=== PATIENT | male | born 1990 | race Asian ===

== ENCOUNTER 2018-02-22 16:19 | Emergency (ER) | payer BC, OTHER ==
[2018-02-22] MEDS: LIDOCAINE W/EPINEPHRINE 1% 20ML VIAL SC (17:06)
== END 2018-02-22 17:34 | disposition home or self-care (01) ==
LOC: M ED 16:19
DX: S51.811A Laceration without foreign body of right forearm, initial encounter (principal); W22.8XXA Striking against or struck by other objects, initial encounter; Y92.018 Other place in single-family (private) house as the place of occurrence of the external cause; Z79.899 Other long term (current) drug therapy; Z88.8 Allergy status to other drugs, medicaments and biological substances
CPT/HCPCS: 73090

== ENCOUNTER 2019-11-17 17:12 | Inpatient (IN) | payer BC ==
[~2019-11-17] VITALS: Ht 167.6 cm; Wt 82.6 kg
[~2019-11-17 17:12] MED LIST: BUPR300T92
[2019-11-17] MEDS ORDERED: CHARCOAL ACTIVATED LIQUID 25 GM/120 ML BTL PO ONE (17:30)
[2019-11-17] MEDS ORDERED: NS 1,000 ML IV ONE (17:30)
[2019-11-17 17:44] LABS: BASO % 0.4 % (0.0-1.0); EOS # 0.1 10^3/uL (0.0-0.5); EOS % 0.7 % (0.0-3.0); HEMATOCRIT 44.8 % (42.0-52.0); HEMOGLOBIN 14.7 g/dl (13.5-17.5); LYMPH # 2.1 10^3/uL (1.5-5.0); LYMPH % 20.9 % (24.0-44.0); MEAN CORPUSCULAR HEMOGLOBIN 28.1 pg (27.0-33.0); MEAN CORPUSCULAR HGB CONC 32.8 g/dl (32.0-36.5); MEAN CORPUSCULAR VOLUME 85.5 fl (80.0-96.0); MONO # 0.8 10^3/uL (0.0-0.8); MONO % 7.4 % (0.0-5.0); NEUTROPHILS # 7.2 10^3/uL (1.5-8.5); NEUTROPHILS % 70.3 % (36.0-66.0); PLATELET COUNT, AUTOMATED 363 10^3/uL (150-450); RED BLOOD COUNT 5.24 10^6/uL (4.30-6.10); WHITE BLOOD COUNT 10.2 10^3/uL (4.0-10.0)
[2019-11-17] MEDS ORDERED: LORazepam 2 MG/ML VIAL IV STA ×4 (17:53→19:36)
[2019-11-17] MEDS ORDERED: LORazepam 2 MG/ML VIAL As Ordered ONE ×3 (17:56→19:47)
[2019-11-17] MEDS ORDERED: NS 1,000 ML IV SCH (18:15)
[2019-11-17] MEDS ORDERED: ONDANSETRON 4MG/2ML VIAL IV ONE (18:15)
[2019-11-17 18:23] LABS: ACETAMINOPHEN LEVEL < 2.0 UG/ML (10.0-30.0); ALT/SGPT 37 U/L (12-78); BILIRUBIN,DIRECT 0.2 MG/DL (0.0-0.2); BILIRUBIN,TOTAL 0.5 MG/DL (0.2-1.0); BLOOD UREA NITROGEN 12 MG/DL (7-18); CALCIUM LEVEL 9.5 MG/DL (8.5-10.1); CARBON DIOXIDE LEVEL 21 MEQ/L (21-32); CHLORIDE LEVEL 109 MEQ/L (98-107); CPK CREATINE PHOSPHOKINASE 100 U/L (39-308); ETHYL ALCOHOL (ETHANOL) < 0.003 % (0.000-0.010); GLOMERULAR FILTRATION RATE > 60.0 (>60); GLUCOSE, FASTING 111 MG/DL (70-100); POTASSIUM SERUM 3.1 MEQ/L (3.5-5.1); SALICYLATE LEVEL < 1.7 MG/DL (5.0-30.0); SODIUM LEVEL 139 MEQ/L (136-145); TOTAL PROTEIN 7.7 GM/DL (6.4-8.2)
[2019-11-17 18:40] LABS: AMPHETAMINES LEVEL URINE POSITIVE (NEGATIVE); BARBITURATES URINE NEGATIVE (NEGATIVE); BENZODIAZEPINES URINE NEGATIVE (NEGATIVE); CANNABINOIDS URINE NEGATIVE (NEGATIVE); COCAINE METABOLITE URINE NEGATIVE (NEGATIVE); METHADONE URINE NEGATIVE (NEGATIVE); OPIATES URINE NEGATIVE (NEGATIVE); PHENCYCLIDINE URINE NEGATIVE (NEGATIVE)
[2019-11-17] MEDS ORDERED: KCL 10MEQ/100ML SWI (KRUN) 10 MEQ in IV 1 EA IV ONE (18:45)
[2019-11-17] MEDS ORDERED: PANT-23 PO (19:09)
[2019-11-17] MEDS ORDERED: SUMA100T2 PO (19:09)
[2019-11-17] MEDS ORDERED: FAMO20TA PO (19:09)
[2019-11-17] MEDS ORDERED: VITAD1000T PO (19:09)
[2019-11-17] MEDS ORDERED: TOPI100T9 PO (19:09)
[2019-11-17] MEDS ORDERED: BUPR1TAB53 PO (19:09)
[2019-11-17] MEDS ORDERED: PATIENT COMMENTS (19:11)
[2019-11-17] MEDS ORDERED: CETACAINE SPRAY 5GM ONE (19:20)
[2019-11-17] MEDS ORDERED: LORazepam 2 MG/ML VIAL IV PRN ×2 (19:30→19:45)
--- NOTE | 2019-11-17 19:34 | HPEPDOC ---
[facility] Medical History & Physical Date of Admission Nov 17, 2019 Date of Service: Nov 17, 2019 History and Physical CHIEF COMPLAINT: Drug overdose HISTORY OF PRESENT ILLNESS: Patient is 29-year-old male brought in by EMS after ingesting 2 bottles of 150MG TABLET Wellbutrin and 1 bottle of Protonix, triaged at 17:14 this evening. Patient reportedly had a seizure in the ER and was given Ativan. Poison control was contacted in the ER and had recommended activated charcoal to be given, which patient had got. Patient is alert but does not answer questions or follow commands, intermittent episodes of agitation. 2nd notification of seizure was reported but upon evaluation, it seems like agitation and not actually a seiz ure. Unable to obtain any history from patient, all from triage note and through phone with . Per , patient has been very depressed since he lost his mother last March and continues to get worse. No other significant medical history apart from psychiatric reportedly. PMH: PTSD and Depression PAST SURGICAL HISTORY: None SOCIAL HISTORY: 1-2 cigs/day. No alcohol or drug. FAMILY HISTORY: Both parents with DM and HTN ALLERGIES: Please see below. ROS: Unable to obtain HOME MEDICATIONS: Please see below. PHYSICAL EXAMINATION: General: Alert but does not follow commands. Moan and groans with periods of agitation. Body covered in activated charcoal. Eyes: Normal sclera, EOMI HENT: Atraumatic Cardiovascular: Tachycardic, regular rhythm. Pulmonary: Clear to auscultation b/l, no wheezing GI: Soft, nontender, nondistended Skin: Warm and dry Neuro: CN grossly intact. Unable to fully assess due to mental status. LABORATORY DATA: See below. IMAGING: None MICROBIOLOGY: Please see below. ASSESSMENT AND PLAN: 1. Drug overdose - 2 bottles of wellbutrin and 1 bottle of protonix this afternoon. - s/p activated charcoal recommended by Poison control ([place]). - Also recommended observation for 24 hours, benzos for seizures and 2g magnesium if Qtc >500. - sinus tachycardia on EKG with Qtc 498. Repeat EKG, obtain mag level and check Calcium level now. - Admit to ICU with 1:1 observation. Will need psych eval after medically cleared, likely will need to be admitted to inpatient psych. - IVF support. NPO for now. Ativan PRN for seizures, seizure precautions. 2. PTSD and Depression - to be evaluated and treat per Psych recommendation post discharge from medical floor. DVT ppx: Lovenox Code status: Full code Vital Signs Vital Signs Date Time Temp Pulse Resp B/P (MAP) Pulse Ox O2 Delivery O2 Flow Rate FiO2 11/17/19 17:55 Room Air 11/17/19 17:55 11/17/19 17:13 98.3 123 18 97 Laboratory Data Labs 24H Laboratory Tests 2 11/17/19 17:34: Immature Granulocyte % (Auto) 0.3, Neutrophils (%) (Auto) 70.3H, Lymphocytes (%) (Auto) 20.9L, Monocytes (%) (Auto) 7.4H, Eosinophils (%) (Auto) 0.7, Basophils (%) (Auto) 0.4, Neutrophils # (Auto) 7.2, Lymphocytes # (Auto) 2.1, Monocytes # (Auto) 0.8, Eosinophils # (Auto) 0.1, Basophils # (Auto) 0.0, Nucleated Red Blood Cells % (auto) 0.0, Anion Gap 9, Glomerular Filtration Rate > 60.0, Calciu m Level 9.5, Total Bilirubin 0.5, Direct Bilirubin 0.2, Aspartate Amino Transf (AST/SGOT) 19, Alanine Aminotransferase (ALT/SGPT) 37, Alkaline Phosphatase 100, Total Creatine Kinase 100, Total Protein 7.7, Albumin 4.0, Albumin/Globulin Ratio 1.1, Thyroid Stimulating Hormone (TSH) 2.330, Salicylates Level < 1.7L, Acetaminophen Level < 2.0L, Ethyl Alcohol Level < 0.003 11/17/19 17:40: Bedside Glucose (Misc Panel) 125H 11/17/19 18:08: Urine Opiates Screen NEGATIVE, Urine Methadone Screen NEGATIVE, Urine Barbiturates Screen NEGATIVE, Urine Phencyclidine Screen NEGATIVE, Urine Amphetamines Screen POSITIVEH, Urine Benzodiazepines Screen NEGATIVE, Urine Coca ine Metabolite Screen NEGATIVE, Urine Cannabinoids Screen NEGATIVE CBC/BMP Laboratory Tests 11/17/19 17:34 Home Medications Scheduled Bupropion HCl (Bupropion HCl Sr) 150 Mg Tab.sr.12h, 150 MG PO DAILY Cholecalciferol (Vitamin D3) (Vitamin D3) 1,000 Unit Tablet, 2,000 UNITS PO DAILY Famotidine (Famotidine) 20 Mg Tablet, 20 MG PO QHS Pantoprazole Sodium (Pantoprazole Sodium) 40 Mg Tablet.dr, 40 MG PO DAILY Topiramate (Topiramate) 100 Mg Tablet, 100 MG PO DAILY Scheduled PRN Sumatriptan Succinate (Sumatriptan Succinate) 100 Mg Tablet, 100 MG PO ASDIRECTED PRN for MIGRAINE may repeat in 2 hours; do not exceed 200 mg in 24 hours Miscellaneous Medications [Patient Comments] UNABLE TO SPEAK WITH PATIENT AT THIS TIME. MEDICATIONS VERIFIED WITH [facility]. Allergies Coded Allergies: divalproex sodium (Verified Adverse Reaction, Mild, HAND SHAKING, 11/17/19) A-FIB/CHADSVASC A-FIB History Current/History of A-Fib/PAF?: No CONCETTA TRAN MD Nov 17, 2019 19:34
[2019-11-17 21:00] VITALS: BP 125/77
[2019-11-17] MEDS: NS 1,000 ML IV SCH (21:20)
[2019-11-17] MEDS: KCL 10MEQ/100ML SWI (KRUN) 10 MEQ in IV 1 EA IV SCH ×3 (21:25→23:07)
[2019-11-17] MEDS: ENOXAPARIN 40MG/0.4ML SYRINGE (J1650 PER 10MG) SC SCH (21:25)
[2019-11-17] MEDS ORDERED: PROPOFOL 1,000 MG/100 ML VIAL As Ordered ONE (21:29)
[2019-11-17 22:00] VITALS: BP 119/71
[2019-11-17] MEDS ORDERED: MIDAZOLAM 5MG/ML 1ML VIAL (J2250 PER 1MG) As Ordered ONE (22:00)
[2019-11-17 22:08] LABS: ALBUMIN 3.5 GM/DL (3.2-5.2); ALT/SGPT 31 U/L (12-78); BILIRUBIN,TOTAL 0.6 MG/DL (0.2-1.0); BLOOD UREA NITROGEN 13 MG/DL (7-18); CALCIUM LEVEL 8.4 MG/DL (8.5-10.1); CARBON DIOXIDE LEVEL 21 MEQ/L (21-32); CHLORIDE LEVEL 112 MEQ/L (98-107); CREATININE FOR GFR 1.42 MG/DL (0.70-1.30); GLOMERULAR FILTRATION RATE > 60.0 (>60); GLUCOSE, FASTING 125 MG/DL (70-100); MAGNESIUM LEVEL 2.1 MG/DL (1.8-2.4); POTASSIUM SERUM 3.3 MEQ/L (3.5-5.1); SODIUM LEVEL 140 MEQ/L (136-145); TOTAL PROTEIN 6.6 GM/DL (6.4-8.2)
[2019-11-17 22:09] VITALS: BP 123/72
[2019-11-17] MEDS ORDERED: GOLYTELY SOLN 4000 ML BTL PO ONE (22:15)
[2019-11-17 22:30] VITALS: BP 100/65
[2019-11-17] MEDS ORDERED: GOLYTELY SOLN 4000 ML BTL NG ONE (22:30)
[2019-11-17] MEDS ORDERED: MIDAZOLAM INJ 2MG/2ML VIAL (J2250 PER 1MG) IV STA (22:36)
--- NOTE | 2019-11-17 22:45 | REP ---
Clinical: Status post intubation. Comparison: None. Findings: Endotracheal tube 5 cm above the roas. Nasogastric tube courses below left hemidiaphragm. Cardiac silhouette is normal. Lung lopes are clear without consolidation, effusion, or pneumothorax. Skeletal structures are intact. Impression: 1. Endotracheal tube and nasogastric tube in satisfactory position. 2. No acute cardiopulmonary process appreciated. Electronically Signed by Alok Briggs MD 11/17/2019 10:37 P
[2019-11-17] MEDS: propofoL 1,000 MG in IV 1 EA IV SCH (22:52)
[2019-11-17] MEDS: CHLORHEXIDINE GLUCONATE 0.12 % 15ML UDC (PERIDEX ORAL RINSE) MT SCH (22:57)
[2019-11-17 23:00] VITALS: BP 96/51
[2019-11-17 23:00] LABS: ABG BASE EXCESS -5.6 (-2.0-2.0); ABG O2 SATURATION 99.7 % (95.0-99.0); ABG PARTIAL PRESSURE CO2 34.1 mmHg (35.0-45.0); ABG PARTIAL PRESSURE O2 232.7 mmHg (75.0-100.0); ABG STANDARD HCO3 19.9 MEQ/L (22.0-26.0); ABG pH (ARTERIAL) 7.363 UNITS (7.350-7.450)
[2019-11-17] MEDS ORDERED: GLUCOSE 4GM CHEW TABLET PO PRN (23:00)
[2019-11-17] MEDS ORDERED: DEXTROSE 50% 50 ML SYRINGE IV PRN (23:00)
[2019-11-17] MEDS ORDERED: GLUCAGON INJ 1MG VIAL SC PRN (23:00)
[2019-11-17] MEDS: HumaLOG INSULIN (NovoLOG) PER UNIT SC SCH (23:53)
[2019-11-18] VITALS (25 sets, daily range): BP systolic 101–130; BP diastolic 61–82
[2019-11-18] MEDS: propofoL 1,000 MG in IV 1 EA IV SCH ×6 (02:41→21:05)
[2019-11-18] MEDS: NS 1,000 ML IV SCH ×3 (03:21→19:55)
[2019-11-18] MEDS: MIDAZOLAM INJ 2MG/2ML VIAL (J2250 PER 1MG) IV PRN ×8 (03:30→22:45)
[2019-11-18 05:13] LABS: BASO % 0.2 % (0.0-1.0); EOS % 0.1 % (0.0-3.0); HEMATOCRIT 38.3 % (42.0-52.0); LYMPH # 0.9 10^3/uL (1.5-5.0); LYMPH % 8.2 % (24.0-44.0); MEAN CORPUSCULAR HEMOGLOBIN 28.5 pg (27.0-33.0); MEAN CORPUSCULAR HGB CONC 32.1 g/dl (32.0-36.5); MEAN CORPUSCULAR VOLUME 88.9 fl (80.0-96.0); MONO # 0.8 10^3/uL (0.0-0.8); MONO % 6.9 % (0.0-5.0); NEUTROPHILS # 9.5 10^3/uL (1.5-8.5); NEUTROPHILS % 84.1 % (36.0-66.0); RED BLOOD COUNT 4.31 10^6/uL (4.30-6.10); WHITE BLOOD COUNT 11.2 10^3/uL (4.0-10.0)
[2019-11-18 05:18] LABS: HEMOGLOBIN 12.3 g/dl (13.5-17.5); PLATELET COUNT, AUTOMATED 262 10^3/uL (150-450)
[2019-11-18 05:37] LABS: ABG BASE EXCESS -4.5 (-2.0-2.0); ABG O2 SATURATION 99.1 % (95.0-99.0); ABG PARTIAL PRESSURE CO2 34.7 mmHg (35.0-45.0); ABG PARTIAL PRESSURE O2 160.1 mmHg (75.0-100.0); ABG STANDARD HCO3 20.8 MEQ/L (22.0-26.0); ABG pH (ARTERIAL) 7.378 UNITS (7.350-7.450)
[2019-11-18 05:42] LABS: ALBUMIN 3.2 GM/DL (3.2-5.2); ALT/SGPT 30 U/L (12-78); BILIRUBIN,TOTAL 0.4 MG/DL (0.2-1.0); BLOOD UREA NITROGEN 9 MG/DL (7-18); CARBON DIOXIDE LEVEL 22 MEQ/L (21-32); CHLORIDE LEVEL 113 MEQ/L (98-107); CHOLESTEROL LEVEL 83 MG/DL (< 200); CPK CREATINE PHOSPHOKINASE 132 U/L (39-308); CREATININE FOR GFR 1.16 MG/DL (0.70-1.30); GLOMERULAR FILTRATION RATE > 60.0 (>60); GLUCOSE, FASTING 110 MG/DL (70-100); LDH LACTATE DEHYDROGENASE 181 U/L (87-241); PHOSPHORUS LEVEL 2.4 MG/DL (2.5-4.9); POTASSIUM SERUM 3.7 MEQ/L (3.5-5.1); SODIUM LEVEL 143 MEQ/L (136-145); TOTAL PROTEIN 6.1 GM/DL (6.4-8.2); TRIGLYCERIDES LEVEL 202 MG/DL (<150)
[2019-11-18] MEDS: HumaLOG INSULIN (NovoLOG) PER UNIT SC SCH ×3 (05:56→18:00)
[2019-11-18] MEDS: ALBUTEROL SULFATE 2.5 MG/0.5 ML INH NEB SOLN NEB SCH ×4 (07:08→19:32)
--- NOTE | 2019-11-18 08:12 | REP ---
Clinical: Endotracheal tube placement . Comparison: 11/17/2019 endotracheal tube 4 cm above the rosa. Nasogastric tube courses below left hemidiaphragm. . Findings: The mediastinum and cardiac silhouette are stable and within normal limits for portable technique. The lung lopes are clear without acute consolidation, effusion, or pneumothorax. Skeletal structures are intact. Impression: No acute cardiopulmonary process appreciated. Electronically Signed by Alok Briggs MD 11/18/2019 08:01 A
--- NOTE | 2019-11-18 09:03 | ECGEPIP ---
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
[2019-11-18] MEDS: CHLORHEXIDINE GLUCONATE 0.12 % 15ML UDC (PERIDEX ORAL RINSE) MT SCH ×2 (10:08→19:55)
--- NOTE | 2019-11-18 12:48 | CCN ---
DATE: 11/17/2019 I was called to the intensive care unit to evaluate this 29-year-old male who had taken an overdose of medications including Wellbutrin and Protonix and possibly others. Ingestion was earlier this evening. In the emergency department, seizure activity was seen and he was given Ativan. Now in the intensive care unit, he is obtunded with dyskinetic movements of his extremities in response to tactile stimulus. There is no significant past history obtainable nor was there much reported by family. PHYSICAL EXAMINATION: His temperature is 98, pulse rate 146, respirations 24, blood pressure 125/72. HEENT: He is normocephalic, atraumatic. His pupils are small and there is roving eye movement. He does have pupillary response. The oropharynx is stained with charcoal. His reflex is very minimal. Neck is supple. There is no meningismus. No adenopathy. Jugular veins are flat. Carotid upstroke brisk. Heart sounds are regular without appreciable murmurs. Breath sounds are diminished, but clear and mildly coarse in the large airways. Abdomen is soft. There are diminished bowel sounds in the right lower quadrant. No palpable mass. No bruit. Extremities are showing dystonic motion. Pulses are palpable times four. There is no gross deformity. Diagnostic Studies: Sodium is 140, potassium 3.3, chloride 112, CO2 21, BUN 13, creatinine 1.42, glucose 125, AST is 20, ALT is 31, albumin is 3.5. Toxicology was positive for amphetamines. White cell count is 10.2, hemoglobin 14., hematocrit 44, platelet count 363,000. Electrocardiogram shows a sinus tachycardia. The primary problem requiring critical attention is polysubstance overdose. As the patient is not protecting his airway, we place an endotracheal tube and initiate mechanical ventilation. Will begin sedation with propofol. He has received charcoal. An nasogastric (NG) tube will be placed to facilitate lavage. Seizure disorder. There has been no recurrence. Ativan will be available on an as-needed basis and we will take appropriate precautions. Deep vein thrombosis (DVT) prophylaxis has been addressed with Lovenox. Ulcer prophylaxis. The patient apparently took Protonix as part of his overdose, will begin famotidine in the morning. Glycemic control will be monitored with fingerstick blood sugars and will arrange coverage every 6 hours. His condition is critical. Prognosis is guarded. One hour and 12 minutes was spent in the provision of bedside critical care abd coordination, exclusive of any procedure time.
--- NOTE | 2019-11-18 16:21 | IPNPDOC ---
Text Note Date of Service The patient was seen on 11/18/19. NOTE Subjective: -Now intubated per poison control recs for protection given seizures and high dose of wellbutrin overdose. Objective: General: NAD, sedated Eyes: Normal sclera, anicteric HENT: Atraumatic, intubated, dry MM Cardiovascular: RRR, no mrg Pulmonary: +rhonchi, otherwise moving air well GI: Normoactive, soft, non distended Skin: Warm and dry Neuro: Unable to fully assess due to mental status. withdraws to pain LABORATORY DATA: reviewed WBC 11.2 hgb 12.3 platelets 262 na 143 K 3.7 Cr 1.16 MICROBIOLOGY: Please see below. ASSESSMENT AND PLAN: 1. Drug overdose: 2 bottles of wellbutrin and 1 bottle of protonix - s/p activated charcoal, intubated as recommended by Poison control - Also recommended observation benzos for seizures and 2g magnesium if Qtc >500. - Intentivist is functionally the primary team while intubated in the ICU - Will need psych eval after medically cleared, will need to be admitted to inpatient psych. - IVF, NPO 2. PTSD and Depression - to be evaluated and treated per psych after medical optimization DVT ppx: Lovenox Code status: Full code VS,Fishbone, I+O VS, Fishbone, I+O Laboratory Tests 11/17/19 17:34 11/17/19 21:20 11/18/19 05:00 Vital Signs Date Time Temp Pulse Resp B/P (MAP) Pulse Ox O2 Delivery O2 Flow Rate FiO2 11/18/19 15:19 20 21 11/18/19 15:00 93 119/77 (91) 100 Ventilator 11/18/19 12:00 98.8 I&O- Last 24 Hours up to 6 AM 11/18/19 06:00 Intake Total 7457 ml Output Total 795 ml Balance 6662 ml VIKASH SALAS MD Nov 18, 2019 16:21
[2019-11-18] MEDS: ENOXAPARIN 40MG/0.4ML SYRINGE (J1650 PER 10MG) SC SCH (20:01)
--- NOTE | 2019-11-18 20:28 | ECGEPIP ---
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
--- NOTE | 2019-11-18 20:32 | ECGEPIP ---
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
--- NOTE | 2019-11-18 20:34 | ECGEPIP ---
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
[2019-11-19] VITALS (12 sets, daily range): BP systolic 117–134; BP diastolic 65–81
[2019-11-19] MEDS: propofoL 1,000 MG in IV 1 EA IV SCH ×2 (00:06→03:43)
[2019-11-19] MEDS: HumaLOG INSULIN (NovoLOG) PER UNIT SC SCH ×2 (00:35→05:22)
[2019-11-19] MEDS: MIDAZOLAM INJ 2MG/2ML VIAL (J2250 PER 1MG) IV PRN ×3 (00:35→03:42)
[2019-11-19 04:19] LABS: BASO % 0.3 % (0.0-1.0); EOS # 0.1 10^3/uL (0.0-0.5); EOS % 0.8 % (0.0-3.0); HEMATOCRIT 36.7 % (42.0-52.0); HEMOGLOBIN 11.8 g/dl (13.5-17.5); LYMPH # 1.2 10^3/uL (1.5-5.0); LYMPH % 11.3 % (24.0-44.0); MEAN CORPUSCULAR HEMOGLOBIN 28.4 pg (27.0-33.0); MEAN CORPUSCULAR HGB CONC 32.2 g/dl (32.0-36.5); MEAN CORPUSCULAR VOLUME 88.4 fl (80.0-96.0); MONO % 9.3 % (0.0-5.0); PLATELET COUNT, AUTOMATED 264 10^3/uL (150-450); RED BLOOD COUNT 4.15 10^6/uL (4.30-6.10); WHITE BLOOD COUNT 10.3 10^3/uL (4.0-10.0)
[2019-11-19 04:51] LABS: ALBUMIN 2.9 GM/DL (3.2-5.2); ALT/SGPT 24 U/L (12-78); BILIRUBIN,TOTAL 0.3 MG/DL (0.2-1.0); BLOOD UREA NITROGEN 4 MG/DL (7-18); CALCIUM LEVEL 8.1 MG/DL (8.5-10.1); CARBON DIOXIDE LEVEL 26 MEQ/L (21-32); CHLORIDE LEVEL 116 MEQ/L (98-107); CHOLESTEROL LEVEL 94 MG/DL (< 200); CPK CREATINE PHOSPHOKINASE 182 U/L (39-308); CREATININE FOR GFR 1.01 MG/DL (0.70-1.30); GLOMERULAR FILTRATION RATE > 60.0 (>60); GLUCOSE, FASTING 142 MG/DL (70-100); LDH LACTATE DEHYDROGENASE 206 U/L (87-241); PHOSPHORUS LEVEL 1.7 MG/DL (2.5-4.9); POTASSIUM SERUM 3.3 MEQ/L (3.5-5.1); SODIUM LEVEL 149 MEQ/L (136-145); TOTAL PROTEIN 5.8 GM/DL (6.4-8.2); TRIGLYCERIDES LEVEL 146 MG/DL (<150)
[2019-11-19] MEDS ORDERED: POTASSIUM CHLORIDE 10 MEQ SR TABLET PO ONE (05:15)
[2019-11-19] MEDS: NS 1,000 ML IV SCH ×2 (05:16→21:08)
[2019-11-19] MEDS ORDERED: POTASSIUM CHLORIDE 10% LIQ 20 MEQ/15 ML UDC NG ONE (05:30)
[2019-11-19 05:34] LABS: ABG BASE EXCESS -0.8 (-2.0-2.0); ABG HCO3 22.9 MEQ/L (22.0-26.0); ABG O2 SATURATION 98.4 % (95.0-99.0); ABG PARTIAL PRESSURE CO2 34.7 mmHg (35.0-45.0); ABG PARTIAL PRESSURE O2 105.7 mmHg (75.0-100.0); ABG STANDARD HCO3 23.9 MEQ/L (22.0-26.0); ABG pH (ARTERIAL) 7.438 UNITS (7.350-7.450)
[2019-11-19] MEDS: ALBUTEROL SULFATE 2.5 MG/0.5 ML INH NEB SOLN NEB SCH (07:01)
--- NOTE | 2019-11-19 08:20 | REP ---
Clinical: Endotracheal tube placement. Comparison: 11/18/2019. Findings: Endotracheal tube 4 cm above the rosa. Nasogastric tube courses below left hemidiaphragm. Mediastinum and cardiac silhouette are normal. Lung lopes are relatively clear and without discrete focal consolidation, obvious effusion, or pneumothorax. Skeletal structures are intact. Impression: Endotracheal tube and nasogastric tube in satisfactory position. No focal consolidation or effusion. Electronically Signed by Alok Briggs MD 11/19/2019 08:09 A
--- NOTE | 2019-11-19 08:40 | CCN ---
DATE: 11/18/2019 The patient is seen in the intensive care unit intubated, mechanically ventilated, sedate with propofol, critically ill. Temperature is 97, pulse rate 86, respirations 18 over 18 delivered, no spontaneous breaths. Oxygen saturation is adequate on 30% oxygen. Blood pressure 110/62. Ins and outs for the past 24 hours is 1750 in and 15 mL out. Since midnight, 5707 in and 780 out. At bedside, he is sedate. Pupils are small. He does not follow with his eyes. There is an 8.5 endotracheal tube at 22 cm at the lip line. Orogastric tube is in good position. There is oral staining from charcoal. His neck is supple without meningismus. There is no jugular venous distention. Heart sounds are regular. Breath sounds are clear to auscultation in all lopes. Chest is symmetric. Moves symmetrically with mechanically ventilated breaths. There are no spontaneous efforts. Abdomen is soft. There are bowel sounds in the right lower quadrant. No palpable mass. Extremities are cool. Pulses are palpable. Motor tone is diminished. Diagnostic Studies: Review of his CBC shows a white count of 11.2 up slightly, hemoglobin is down slightly at 12.3, hematocrit 38.3, and platelet count is 262,000. The differential white cell count shows 84% neutrophils and 8.2% lymphocytes. The electrolytes are sodium 143, potassium 3.7, chloride 113, CO2 22, BUN is 9, creatinine is down at 1.16, glucose is 110, range 109 to 125. Arterial blood gases this morning show a pH of 7.37, pCO2 34, and pO2 160, this on IMV mode of ventilation, rate of 18, tidal volume 350, FIO2 0.3, PEEP of 5, PSV of 12. Peak pressures on this mode are 16-20. Chest x-ray was reviewed. Report is pending. I see no infiltrates. Tubes and lines are in good position. The primary problem requiring critical attention is polysubstance overdose. The patient is combative and dysphoric when on sedation vacation. Will continue sedation with propofol to allow further metabolism of the overdose medications. He has received activated charcoal and colonic irrigation. Acute respiratory failure. Arterial blood gases are acceptable on the current ventilator settings. Will continue with ventilator support. For nutritional support, will begin tube feedings and I will compensate by reducing the IV fluids administered. Deep vein thrombosis (DVT) prophylaxis will be addressed with Lovenox. Ulcer prophylaxis will be addressed with famotidine. Blood sugars are acceptable at this point. Will continue monitoring of fingerstick blood sugars and coverage. The patient's condition remains critical. Prognosis is guarded. 69 minutes was spent in the provision of bedside critical care and coordination, exclusive of procedure time. [facility]
[2019-11-19] MEDS ORDERED: POTASSIUM PHOSPHATE INJ 15 MMOL in D5W 250 ML IV ONE (10:00)
--- NOTE | 2019-11-19 18:07 | CCN ---
DATE: 11/19/2019 The patient is seen in the intensive care unit, intubated, mechanically ventilated, sedate with propofol, critically ill. This is ICU day #3, endotracheal tube intubation day #3. At bedside, his temperature is 99.6, pulse rate 97, respirations 20 over 18 delivered blood pressure 131/81. Input and output for the past 24 hours 8681 in , 68408 out, since midnight 2177 in, 1460 out. Following sedation vacation, he is more awake and responsive as well as cooperative. HEENT: His pupils are midplane and responsive to light. There is an endotracheal tube at 22 cm. Orogastric tube is in good position. Neck is supple. No meningismus. Jugular veins are flat. Carotid upstroke brisk. Heart: Sounds are regular without appreciable murmur. Breath sounds are clear to auscultation all lopes. Chest is symmetric and moves symmetrically with ventilated breaths the there are no adventitial breath sounds. Abdomen is soft. There are bowel sounds in the right lower quadrant. No palpable mass. Extremities are cool. Pulses diminished but palpable. Nails show no clubbing. There is no deformity. DIAGNOSTIC STUDIES: White cell count is down to 10.3, hemoglobin is down to 11.8, hematocrit 36.7, platelet count is 264,000. Differential white cell count shows 78% neutrophils, 11.38 lymphocytes. Electrolytes show sodium 149 up from 143, potassium is down to 3.3, chloride 116, CO2 26, BUN 4, creatinine 1.01, glucose is 142, range 108-142. His calcium is 8.1, but the albumin is 2.9, phosphorus is down at 1.7, bilirubin 0.38 ALT 24, AST 13, alkaline phosphatase 88, LDH is 206. His protein is 5.8, triglycerides 146. Arterial blood gases showed a pH of 7.43, pCO2 34.7, pO2 105.7 this on at intermittent mandatory ventilation rate of 18, tidal volume 350, FIO2 0.3, PEEP of five, PSV of 12. On medications review, he is receiving Lovenox 40 mg every a.m., propofol titrated [place] 2, saline IV at 100 cc/hour and subcutaneous insulin as needed for elevated blood sugar. The primary problem requiring critical attention is multiple drug overdose the effects of which appear to have worn off after charcoal and bowel lavage and time. Acute respiratory failure secondary to secure airway. We will proceed with weaning and extubation. Seizure activity. This was seen in the emergency department on presentation. There has been no repeat episodes. Will continue with precautions and Ativan if needed for seizure activity. Hypokalemia and hypophosphatemia. Replacement has been ordered and this will be rechecked in the morning. Relative hyponatremia. Suspect that this is related to bowel irrigation and IV saline. Will reduce his IV rate and follow electrolytes. Deep vein thrombosis (DVT) prophylaxis. Will continue with sequential hose. His condition remains critical. Prognosis is good. One hour and 9 minutes were spent in provision at bedside critical care and coordination exclusive of any procedure time.
[2019-11-19] MEDS: ENOXAPARIN 40MG/0.4ML SYRINGE (J1650 PER 10MG) SC SCH (21:08)
--- NOTE | 2019-11-19 21:17 | IPNPDOC ---
Date Seen The patient was seen on 11/19/19. Progress Note SUBJECTIVE: Successfully extubated this AM, saturating well on RA. no seizure activity overnight. Patient tells me he intentionally overdosed to scare his since she is wanting a divorce. Psych consulted. He has some sore throat but denies chest pain, shortness of breath, n/v/d, fevers or chills. OBJECTIVE: VITAL SIGNS: PHYSICAL EXAM: General: AAOx3, in NAD resting in bed Eyes: Normal sclera, anicteric HENT: Atraumatic, intubated, moist MM Cardiovascular: RRR, no mrg Pulmonary: CTAB, no wheezing, rhonchi or rales GI: Normoactive, soft, non distended Skin: Warm and dry Neuro: CN 2-12 intact, no focal deficits. LABORATORY DATA: Please see below ASSESSMENT: 29 y/o M admitted for seizures s/p wellbutrin overdose, extubated successfully today. PLAN: 1. Intentional drug overdose s/p ingestion of 2 bottles of wellbutrin and 1 bottle of protonix - s/p activated charcoal, intubated as recommended by Poison control and extubated successfully 11/19/19 - AAO x3 - Denies suicidal ideation, hx of depression - Psych consulted. C/w - IVFs, Clear liquid diet and advance as tolerated 2. PTSD and Depression, ? suicidal ideations with overdose - Denies suicidal ideation. -Discussed case with psychiatry. Patient will likely need inpatient mental health admission. -patient to be interviewed by psychiatry today. -1:1 sitter 3. DVT ppx: Lovenox DISPOSITION: MED/SURG appropriate. Plan is likely [facility] admission after inpatient stay. VS, I&O, 24H, [place]ela Vital Signs/I&O Vital Signs Date Time Temp Pulse Resp B/P (MAP) Pulse Ox O2 Delivery O2 Flow Rate FiO2 11/19/19 16:00 99.1 97 18 129/81 (97) 98 Room Air 11/19/19 08:50 21 I&O- Last 24 Hours up to 6 AM 11/19/19 06:00 Intake Total 4191.5 ml Output Total 6700 ml Balance -2508.5 ml Laboratory Data 24H LABS Laboratory Tests 2 11/19/19 00:17: Bedside Glucose (Misc Panel) 134H 11/19/19 04:04: Immature Granulocyte % (Auto) 0.3, Neutrophils (%) (Auto) 78.0H, Lymphocytes (%) (Auto) 11.3L, Monocytes (%) (Auto) 9.3H, Eosinophils (%) (Auto) 0.8, Basophils (%) (Auto) 0.3, Neutrophils # (Auto) 8.0, Lymphocytes # (Auto) 1.2L, Monocytes # (Auto) 1.0H, Eosinophils # (Auto) 0.1, Basophils # (Auto) 0.0, Nucleated Red Blood Cells % (auto) 0.0, Anion Gap 7L, Glomerular Filtration Rate > 60.0, Calcium Level 8.1L, Phosphorus Level 1.7#L, Total Bilirubin 0.3, Aspartate Amino Transf (AST/SGOT) 13, Alanine Aminotransferase (ALT/SGPT) 24, Alkaline Phosphatase 88, Lactate Dehydrogenase 206, Total Creatine Kinase 182, Total Protein 5.8L, Albumin 2.9L, Albumin/Globulin Ratio 1.0, Triglycerides Level 146, Cholesterol Level 94 11/19/19 05:19: Bedside Glucose (Misc Panel) 134H 11/19/19 05:25: Blood Gas Bicarbonate Standard 23.9, Arterial Blood pH 7.438, Arterial Blood Partial Pressure CO2 34.7L, Arterial Blood Partial Pressure O2 105.7H, Arterial Blood Total CO2 24.0, Arterial Blood HCO3 22.9, Arterial Blood Base Excess -0.8, Arterial Blood Oxygen Saturation 98.4 CBC/BMP Laboratory Tests 11/19/19 04:04 Current Medications Current Medications Medications (Trade) Dose Ordered Sig/Annabella Route PRN Reason Start Time Stop Time Status Last Admin Dose Admin Albuterol Sulfate (Proventil Neb) 2.5 mg RQID NEB 11/18/19 08:00 11/19/19 08:56 DC 11/19/19 07:01 Chlorhexidine Gluconate (Peridex Oral Rinse) SWAB/BRUSH ORAL CAVITY BID MT 11/17/19 21:00 11/19/19 08:56 DC 11/18/19 19:55 Dextrose (Dextrose 50%) 25 ml ASDIRECTED PRN IV SEE LABEL COMMENTS 11/17/19 23:00 11/19/19 08:56 DC Enoxaparin Sodium (Lovenox) 40 mg DAILY@2100 SC 11/17/19 21:00 11/19/19 21:08 Glucagon (Glucagon) 1 mg ASDIRECTED PRN SC SEE LABEL COMMENTS 11/17/19 23:00 11/19/19 08:56 DC Glucose (Glucose) 16 GM ASDIRECTED PRN PO SEE LABEL COMMENTS 11/17/19 23:00 11/19/19 08:56 DC Home Med (Med Rec Complete!) ASDIRECTED XX 11/17/19 19:15 11/17/19 19:22 DC Insulin Human Lispro (HumaLOG INSULIN) SEE PROTOCOL TABLE Q6H SC 11/18/19 00:00 11/19/19 08:56 DC 11/19/19 05:22 Lorazepam (Ativan) 1 mg STAT STAT IV 11/17/19 17:53 11/17/19 17:56 DC 11/17/19 17:59 Lorazepam (Ativan) 2 mg Q10MP PRN IV UNCONTROLLED SEIZURE 11/17/19 19:30 11/17/19 19:35 DC Lorazepam (Ativan) 2 mg Q5MP PRN IV UNCONTROLLED SEIZURE 11/17/19 19:45 11/17/19 19:49 Lorazepam (Ativan) 2 mg STAT STAT IV 11/17/19 19:24 11/17/19 19:25 DC 11/17/19 19:28 Lorazepam (Ativan) 2 mg STAT STAT IV 11/17/19 19:27 11/17/19 19:28 DC 11/17/19 19:29 Lorazepam (Ativan) 2 mg STAT STAT IV 11/17/19 19:36 11/17/19 19:37 DC 11/17/19 19:48 Midazolam HCl (Versed) 2 mg Q15MP PRN IV AGITATION 11/17/19 22:45 11/19/19 08:56 DC 11/19/19 03:42 Midazolam HCl (Versed) 4 mg STAT STAT IV 11/17/19 22:36 11/17/19 22:45 DC 11/17/19 22:49 Potassium Chloride 10 meq/ IV Miscellaneous Supplies 100 ml @ 100 mls/hr 2000,2100,2200 IV 11/17/19 20:00 11/18/19 01:00 DC 11/17/19 23:07 Propofol 1000 mg/ IV Miscellaneous Supplies 100 ml @ 4.578 mls/ hr [id number] IV 11/17/19 22:36 6/30/20 08:56 DC 11/19/19 03:43 Sodium Chloride 1,000 ml @ 60 mls/hr [id number] IV 11/17/19 19:22 11/19/19 21:08 Sodium Chloride 1,000 ml @ 100 mls/hr Q10H IV 11/17/19 18:15 11/17/19 19:27 DC 11/17/19 18:28 Allergies Coded Allergies: divalproex sodium (Verified Adverse Reaction, Mild, HAND SHAKING, 11/17/19) Melody Meyer MD Nov 19, 2019 21:17
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
[2019-11-20] VITALS: BP 115/72
[2019-11-20 03:58] VITALS: BP 120/80
[2019-11-20 04:31] LABS: BASO % 0.4 % (0.0-1.0); EOS # 0.1 10^3/uL (0.0-0.5); EOS % 1.4 % (0.0-3.0); HEMATOCRIT 38.9 % (42.0-52.0); HEMOGLOBIN 12.3 g/dl (13.5-17.5); LYMPH # 1.7 10^3/uL (1.5-5.0); LYMPH % 15.9 % (24.0-44.0); MEAN CORPUSCULAR HEMOGLOBIN 28.1 pg (27.0-33.0); MEAN CORPUSCULAR HGB CONC 31.6 g/dl (32.0-36.5); MEAN CORPUSCULAR VOLUME 88.8 fl (80.0-96.0); MONO # 0.9 10^3/uL (0.0-0.8); NEUTROPHILS # 7.6 10^3/uL (1.5-8.5); PLATELET COUNT, AUTOMATED 276 10^3/uL (150-450); RED BLOOD COUNT 4.38 10^6/uL (4.30-6.10); WHITE BLOOD COUNT 10.4 10^3/uL (4.0-10.0)
[2019-11-20 04:59] LABS: ALT/SGPT 21 U/L (12-78); BILIRUBIN,TOTAL 1.1 MG/DL (0.2-1.0); BLOOD UREA NITROGEN 4 MG/DL (7-18); CALCIUM LEVEL 8.7 MG/DL (8.5-10.1); CARBON DIOXIDE LEVEL 27 MEQ/L (21-32); CHLORIDE LEVEL 111 MEQ/L (98-107); CHOLESTEROL LEVEL 123 MG/DL (< 200); CPK CREATINE PHOSPHOKINASE 112 U/L (39-308); CREATININE FOR GFR 0.78 MG/DL (0.70-1.30); GLOMERULAR FILTRATION RATE > 60.0 (>60); GLUCOSE, FASTING 108 MG/DL (70-100); LDH LACTATE DEHYDROGENASE 184 U/L (87-241); PHOSPHORUS LEVEL 2.7 MG/DL (2.5-4.9); POTASSIUM SERUM 3.7 MEQ/L (3.5-5.1); SODIUM LEVEL 142 MEQ/L (136-145); TOTAL PROTEIN 6.1 GM/DL (6.4-8.2); TRIGLYCERIDES LEVEL 188 MG/DL (<150)
[2019-11-20 08:00] VITALS: BP 125/82
--- NOTE | 2019-11-20 12:47 | RO ---
DATE OF PROCEDURE: 11/17/2019 PREOPERATIVE DIAGNOSIS: Unstable airway. POSTOPERATIVE DIAGNOSIS: Unstable airway. PROCEDURE PERFORMED: Direct laryngoscopy with placement of endotracheal tube. SURGEON: Dr. Cornell [facility] MAGNETO SPECIALIST: ANESTHESIA: DESCRIPTION OF PROCEDURE: The patient was seen in the intensive care unit having taken an overdose of medications. He was displaying an unstable airway. Emergent intubation was felt necessary. The patient was given two doses of 2 mg of Versed. The airway was visualized using a GlideScope. There was gross staining of the airway with charcoal. The patient was very clearly not protecting his airway from secretions. A #8.5 endotracheal tube was prepared and placed through the glottis and into the trachea. The balloon was inflated and CO2 was appreciated on the monitor. The endotracheal tube was left at [address] A postprocedure chest x-ray confirmed adequate placement.
--- NOTE | 2019-11-20 16:49 | DS.PDOC ---
Discharge Summary General Date of Admission Nov 18, 2019 at 07:26 Date of Discharge 11/20/19 Attending Physician: Melody Meyer MD Specialist/Consultants Involve: A Discharge Summary HISTORY OF PRESENT ILLNESS: Patient is 29-year-old male brought in by EMS after ingesting 2 bottles of 150MG Wellbutrin and 1 bottle of Protonix, triaged at 17:14 11/18/19. Patient reportedly had a seizure in the ER and was given Ativan. Poison control was contacted in the ER and had recommended activated charcoal to be given, which patient had got. Patient is alert but does not answer questions or follow commands, intermittent episodes of agitation. 2nd notification of seizure was reported but upon evaluation, it seems like agitation and not actually a seizure. Unable to obtain any history from patient, all from triage note and through phone with . Per , patient has been very depressed since he lost his mother last March and continues to get worse. The patient was admitted for buproprion overdose HOSPITAL COURSE: Poison control was contacted and patient was later intubated to protect airway. Successfully extubated this 11/19/19, saturating well on RA. No seizure activity since admission. Patient tells me he intentionally overdosed to scare his since she is wanting a divorce. Psych consulted and they recommended inpatient mental health. He has some sore throat but denies chest pain, shortness of breath, n/v/d, fevers or chills. On 11/20/19, diet was advanced and patient tolerated well. He agreed to mental health transfer and was discharged there. PMH: PTSD Depression PAST SURGICAL HISTORY: None SOCIAL HISTORY: 1-2 cigs/day. No alcohol or drug. Lives with his currently in the local area. He is retired . Full Code FAMILY HISTORY: Both parents with DM and HTN ALLERGIES: Please see below CURRENT MEDICATIONS: Please see below. PHYSICAL EXAM: General: AAOx3, in NAD resting in bed Eyes: Normal sclera, anicteric HENT: Atraumatic, moist MM Cardiovascular: RRR, no mrg Pulmonary: CTAB, no wheezing, rhonchi or rales GI: Normoactive, soft, non distended Skin: Warm and dry Neuro: CN 2-12 intact, no focal deficits. LABORATORY DATA: Please see below ASSESSMENT: 29 y/o M admitted for seizures s/p wellbutrin overdose, ? suicide attempt. PLAN: 1. Intentional drug overdose s/p ingestion of 2 bottles of wellbutrin and 1 bottle of protonix - s/p activated charcoal, intubated as recommended by Poison control and extubated successfully 11/19/19 - AAO x3 - Denies suicidal ideation with longstanding hx of depression - Psychiatry evaluted and will be discharged to inpatient mental health today. 2. PTSD and Depression, ? suicidal ideations with overdose - Denies suicidal ideation. -Psychiatry following DISPOSITION: Discharged today to inpatient mental health unit in improved condition. TIME SPENT ON DISCHARGE: Greater than 30 minutes. Vital Signs/I&Os Vital Signs Date Time Temp Pulse Resp B/P (MAP) Pulse Ox O2 Delivery O2 Flow Rate FiO2 11/20/19 08:00 98.8 100 18 125/82 (96) 100 Room Air 11/20/19 04:01 2.0 11/19/19 08:50 21 l I&O- Last 24 Hours up to 6 AM 11/20/19 06:00 Intake Total 2443 ml Output Total 3250 ml Balance -807 ml Laboratory Data Labs 24H Laboratory Tests 2 11/20/19 04:16: Immature Granulocyte % (Auto) 0.3, Neutrophils (%) (Auto) 73.0H, Lymphocytes (%) (Auto) 15.9L, Monocytes (%) (Auto) 9.0H, Eosinophils (%) (Auto) 1.4, Basophils (%) (Auto) 0.4, Neutrophils # (Auto) 7.6, Lymphocytes # (Auto) 1.7, Monocytes # (Auto) 0.9H, Eosinophils # (Auto) 0.1, Basophils # (Auto) 0.0, Nucleated Red Blood Cells % (auto) 0.0, Anion Gap 4L, Glomerular Filtration Rate > 60.0, Calcium Level 8.7, Phosphorus Level 2.7#, Total Bilirubin 1.1#H, Aspartate Amino Transf (AST/SGOT) 12, Alanine Aminotransferase (ALT/SGPT) 21, Alkaline Bernardo sphatase 82, Lactate Dehydrogenase 184, Total Creatine Kinase 112, Total Protein 6.1L, Albumin 3.0L, Albumin/Globulin Ratio 1.0, Triglycerides Level 188H, Cholesterol Level 123 CBC/BMP Laboratory Tests 11/20/19 04:16 Discharge Medications Scheduled Bupropion HCl (Bupropion HCl Sr) 150 Mg Tab.sr.12h, 150 MG PO DAILY, (Reported) Cholecalciferol (Vitamin D3) (Vitamin D3) 1,000 Unit Tablet, 2,000 UNITS PO DAILY, (Reported) Famotidine (Famotidine) 20 Mg Tablet, 20 MG PO QHS, (Reported) Pantoprazole Sodium (Pantoprazole Sodium) 40 Mg Tablet.dr, 40 MG PO DAILY, (Reported) Topiramate (Topiramate) 100 Mg Tablet, 100 MG PO DAILY, (Reported) Scheduled PRN Sumatriptan Succinate (Sumatriptan Succinate) 100 Mg Tablet, 100 MG PO ASDIRECTED PRN for MIGRAINE, (Reported) may repeat in 2 hours; do not exceed 200 mg in 24 hours Miscellaneous Medications [Patient Comments] , (Reported) UNABLE TO SPEAK WITH PATIENT AT THIS TIME. MEDICATIONS VERIFIED WITH [facility]. Allergies Coded Allergies: divalproex sodium (Verified Adverse Reaction, Mild, HAND SHAKING, 11/17/19) Current Medications Current Medications Medications (Trade) Dose Ordered Sig/Annabella Route PRN Reason Start Time Stop Time Status Last Admin Dose Admin Albuterol Sulfate (Proventil Neb) 2.5 mg RQID NEB 11/18/19 08:00 11/19/19 08:56 DC 11/19/19 07:01 Chlorhexidine Gluconate (Peridex Oral Rinse) SWAB/BRUSH ORAL CAVITY BID MT 11/17/19 21:00 11/19/19 08:56 DC 11/18/19 19:55 Dextrose (Dextrose 50%) 25 ml ASDIRECTED PRN IV SEE LABEL COMMENTS 11/17/19 23:00 11/19/19 08:56 DC Enoxaparin Sodium (Lovenox) 40 mg DAILY@2100 SC 11/17/19 21:00 11/20/19 14:35 DC 11/19/19 21:08 Glucagon (Glucagon) 1 mg ASDIRECTED PRN SC SEE LABEL COMMENTS 11/17/19 23:00 11/19/19 08:56 DC Glucose (Glucose) 16 GM ASDIRECTED PRN PO SEE LABEL COMMENTS 11/17/19 23:00 11/19/19 08:56 DC Home Med (Med Rec Complete!) ASDIRECTED XX 11/17/19 19:15 11/17/19 19:22 DC Insulin Human Lispro (HumaLOG INSULIN) SEE PROTOCOL TABLE Q6H SC 11/18/19 00:00 11/19/19 08:56 DC 11/19/19 05:22 Lorazepam (Ativan) 1 mg STAT STAT IV 11/17/19 17:53 11/17/19 17:56 DC 11/17/19 17:59 Lorazepam (Ativan) 2 mg Q10MP PRN IV UNCONTROLLED SEIZURE 11/17/19 19:30 11/17/19 19:35 DC Lorazepam (Ativan) 2 mg Q5MP PRN IV UNCONTROLLED SEIZURE 11/17/19 19:45 11/20/19 14:35 DC 11/17/19 19:49 Lorazepam (Ativan) 2 mg STAT STAT IV 11/17/19 19:24 11/17/19 19:25 DC 11/17/19 19:28 Lorazepam (Ativan) 2 mg STAT STAT IV 11/17/19 19:27 11/17/19 19:28 DC 11/17/19 19:29 Lorazepam (Ativan) 2 mg STAT STAT IV 11/17/19 19:36 11/17/19 19:37 DC 11/17/19 19:48 Midazolam HCl (Versed) 2 mg Q15MP PRN IV AGITATION 11/17/19 22:45 11/19/19 08:56 DC 11/19/19 03:42 Midazolam HCl (Versed) 4 mg STAT STAT IV 11/17/19 22:36 11/17/19 22:45 DC 11/17/19 22:49 Potassium Chloride 10 meq/ IV Miscellaneous Supplies 100 ml @ 100 mls/hr 2000,2100,2200 IV 11/17/19 20:00 11/18/19 01:00 DC 11/17/19 23:07 Propofol 1000 mg/ IV Miscellaneous Supplies 100 ml @ 4.578 mls/ hr [id number] IV 11/17/19 22:36 11/19/19 08:56 DC 11/19/19 03:43 Sodium Chloride 1,000 ml @ 60 mls/hr [id number] IV 11/17/19 19:22 11/20/19 07:24 DC 11/19/19 21:08 Sodium Chloride 1,000 ml @ 100 mls/hr Q10H IV 11/17/19 18:15 11/17/19 19:27 DC 11/17/19 18:28 Melody Meyer MD Nov 20, 2019 16:49
--- NOTE | 2019-11-21 08:34 | ECGEPIP ---
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
--- NOTE | 2019-11-21 08:36 | ECGEPIP ---
[facility] Test Date: 2019-11-19 Pat Name: COMFORT WEISS Department: Room: [place] [address] Gender: Male Percher: : 1990 Requested By: CONCETTA Gonzalez Order Number: [id number] Reading MD: Dyllan Vásquez Measurements Intervals [place] Rate: 99 P: 23 [place]: 150 QRS: 40 QRSD: 117 T: 77 QT: 360 QTc: 462 Interpretive Statements SINUS RHYTHM MODERATE INTRAVENTRICULAR CONDUCTION DELAY NONSPECIFIC T-WAVE ABNORMALITY SIMILAR TO 2:02 SAME DAY Electronically Signed on 11-21-2019 8:36:43 EDT by Dyllan Vásquez
--- NOTE | 2019-11-21 08:36 | ECGEPIP ---
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
--- NOTE | 2019-11-21 08:39 | ECGEPIP ---
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
--- NOTE | 2019-11-21 08:42 | ECGEPIP ---
[facility] Test Date: 2019-11-19 Pat Name: COMFORT WEISS Department: Room: [place] [address] Gender: Male Principal Gifts Officer: AMARI : 1990 Requested By: CONCETTA Gonzalez Order Number: [id number] Reading MD: Dyllan Vásquez Measurements Intervals [place] Rate: 89 P: 15 [place]: 149 QRS: 13 QRSD: 104 T: 0 QT: 259 QTc: 315 Interpretive Statements SINUS RHYTHM NONSPECIFIC T-WAVE ABNORMALITY COMPARED TO 13:53 SAME DAY T WAVE ABNORMALITIES ARE IMPROVING Electronically Signed on 11-21-2019 8:42:06 EDT by Dyllan Vásquez
--- NOTE | 2019-11-21 08:42 | ECGEPIP ---
[facility] Test Date: 2019-11-20 Pat Name: COMFORT WEISS Department: Room: [place] [address] Gender: Male Business Quality Assurance Analyst: AMARI : 1990 Requested By: CONCETTA Gonzalez Order Number: [id number] Reading MD: Dyllan Vásquez Measurements Intervals [place] Rate: 92 P: 19 [place]: 152 QRS: 15 QRSD: 106 T: 0 QT: 272 QTc: 337 Interpretive Statements SINUS RHYTHM NONSPECIFIC T-WAVE ABNORMALITY COMPARED TO 11/19/19 FURTHER IMPROVEMENT IN REPOLARIZATION ABNORMALITIES Electronically Signed on 11-21-2019 8:42:39 EDT by Dyllan Vásquez
== END 2019-11-20 14:33 | DRG 812 ==
LOC: M ED 17:12 → M ED INP 19:19 → ENRESERV 19:35 → M ICU 20:50 → OBSVTOIN 11-18 07:26
PROVIDERS: ADMIT Student in an Organized Health Care Education/Training Program; ATTEND Internal Medicine
PROC: 5A1945Z Respiratory Ventilation, 24-96 Consecutive Hours (ICD-10-PCS; principal; 2019-11-18)
DX: T43.292A Poisoning by other antidepressants, intentional self-harm, initial encounter (principal); J96.00 Acute respiratory failure, unspecified whether with hypoxia or hypercapnia; E83.39 Other disorders of phosphorus metabolism; E87.1 Hypo-osmolality and hyponatremia; F43.10 Post-traumatic stress disorder, unspecified; Z79.899 Other long term (current) drug therapy; Z88.8 Allergy status to other drugs, medicaments and biological substances; F17.210 Nicotine dependence, cigarettes, uncomplicated; G40.909 Epilepsy, unspecified, not intractable, without status epilepticus; E87.6 Hypokalemia; F32.9 Major depressive disorder, single episode, unspecified; F43.25 Adjustment disorder with mixed disturbance of emotions and conduct; Z63.0 Problems in relationship with spouse or partner; F43.21 Adjustment disorder with depressed mood

== ENCOUNTER 2019-11-20 11:12 | Inpatient (IN) | payer BC ==
[~2019-11-20 11:12] MED LIST changes: +BUPR1TAB53 PO; +FAMO20TA PO; +PANT-23 PO; +PATIENT COMMENTS; +SUMA100T2 PO; +TOPI100T9 PO; +VITAD1000T PO
[2019-11-20] MEDS ORDERED: traZODone 50 MG TAB PO PRN (11:30)
[2019-11-20] MEDS ORDERED: MOM 30ML SUSPENSION UDC PO PRN (11:30)
[2019-11-20] MEDS ORDERED: OLANZapine ORAL DISINTEGRATING TAB 5MG PO PRN (11:30)
[2019-11-20] MEDS ORDERED: MAALOX 30 ML SUSP *UDC PO PRN (11:30)
[2019-11-20 14:42] VITALS: BP 140/87
[2019-11-21 06:26] VITALS: BP 128/77
--- NOTE | 2019-11-21 15:49 | HPEPDOC ---
[facility] Medical History & Physical Date of Admission Nov 21, 2019 Date of Service: Nov 21, 2019 History and Physical CHIEF COMPLAINT: Medical management HISTORY OF PRESENT ILLNESS: Patient is 29-year-old male brought in by EMS after ingesting 2 bottles of 150MG TABLET Wellbutrin and 1 bottle of Protonix, Patient reportedly had a seizure in the ER and was given Ativan. Poison control was contacted in the ER and had recommended activated charcoal to be given, which patient had got. Patient was alert but does not answer questions or follow commands, intermittent episodes of agitation. 2nd notification of seizure was reported but upon evaluation, it seems like agitation and not actually a seizure.. He was intubated for airway protection and admitted to the ICU. Poison control was contacted and patient was later intubated to protect airway. Successfully extubated this 11/19/19, saturating well on RA. No seizure activity since admission. Patient tells me he intentionally overdosed to scare his since she is wanting a divorce. Psych consulted and they recommended inpatient mental health. On 11/20/19, diet was advanced and patient tolerated well. He agreed to mental health transfer and was discharged there. PMH: PTSD and Depression PAST SURGICAL HISTORY: None SOCIAL HISTORY: 1-2 cigs/day. No alcohol or drug. FAMILY HISTORY: Both parents with DM and HTN ALLERGIES: Please see below. ROS: Unable to obtain HOME MEDICATIONS: Please see below. PHYSICAL EXAM: General: AAOx3, in NAD resting in bed Eyes: Normal sclera, anicteric HENT: Atraumatic, moist MM Cardiovascular: RRR, no mrg Pulmonary: CTAB, no wheezing, rhonchi or rales GI: Normoactive, soft, non distended Skin: Warm and dry Neuro: CN 2-12 intact, no focal deficits. LABORATORY DATA: See below. IMAGING: None MICROBIOLOGY: Please see below. ASSESSMENT AND PLAN: 1. Recent Drug overdose. Resolved 2. PTSD and Depression: As per psych Thank so much for consulting on this patient Vital Signs Vital Signs Date Time Temp Pulse Resp B/P (MAP) Pulse Ox O2 Delivery O2 Flow Rate FiO2 11/21/19 06:26 98.4 91 12 128/77 (94) Room Air 11/20/19 14:42 98 Home Medications Scheduled Bupropion HCl (Bupropion HCl Sr) 150 Mg Tab.sr.12h, 150 MG PO DAILY Cholecalciferol (Vitamin D3) (Vitamin D3) 1,000 Unit Tablet, 2,000 UNITS PO DAILY Famotidine (Famotidine) 20 Mg Tablet, 20 MG PO QHS Pantoprazole Sodium (Pantoprazole Sodium) 40 Mg Tablet.dr, 40 MG PO DAILY Topiramate (Topiramate) 100 Mg Tablet, 100 MG PO DAILY Scheduled PRN Sumatriptan Succinate (Sumatriptan Succinate) 100 Mg Tablet, 100 MG PO ASDIRECTED PRN for MIGRAINE may repeat in 2 hours; do not exceed 200 mg in 24 hours Miscellaneous Medications [Patient Comments] UNABLE TO SPEAK WITH PATIENT AT THIS TIME. MEDICATIONS VERIFIED WITH [place] [facility]. Allergies Coded Allergies: divalproex sodium (Verified Adverse Reaction, Mild, HAND SHAKING, 11/17/19) A-FIB/CHADSVASC A-FIB History Current/History of A-Fib/PAF?: No Current PO Anticoag Therapy: No MONSTER KAPLAN MD Nov 21, 2019 15:49
[2019-11-21 16:56] VITALS: BP 140/79
--- NOTE | 2019-11-21 19:47 | MHHPEPDOC ---
General Chief Complaint ". History of Present Illness HISTORY OF THE PRESENT ILLNESS: Patient is a 29 -year-old , male, who . Fred was seen for a psychiatric evaluation today having been admitted to our inpatient psychiatric unit--he [facility] where he was being treated because of the medical complications associated with what looked to be like a very serious suicide attempt with 2 full bottles of bupropion taken When I met with Fred he talked about what led up to this suicide attempt stating that he was in the middle of an argument with his and then in front of his took the 2 bottles of medication in a angry fit but without any suicidal lethal intent His of course became extremely frightened and called 911 and he was brought to the emergency room to be admitted to medicine because of the toxic level of medication that he taken He was seen by Dr. Alvarez for a psychiatric consultation and it was recommended that he come to the psychiatric inpatient unit for further evaluation and treatment He stated today very clearly that he is no longer feeling suicidal whatsoever he would like to be discharged as soon as possible to go home to his and 3-year-old daughter This visit was performed as a telehealth visit utilizing an interactive a/RoboCV system or telephone that permitted real time communication between myself and the patient--permission/consent from patient/guardian was obtained MENTAL STATUS EXAM Level of consciousness--patient was alert and oriented to time place person Appearance-normal posture, normal dress, no prominent physical abnormalities, alert, cooperative Behavior--like to good, no psychomotor agitation or retardation, no abnormal movements, no tremor Speech--normal rate and rhythm--normal volume Mood--euthymic Affect--normal range and consistent with mood--stable Thought processes--logical and linear , goal directed and coherent--no thought blocking or flight of ideas, no loose associations, no tangential thinking, no word salad, no thought blocking, no circumstantiality Thought content--no ideas of reference no auditory or visual hallucinations, no delusional thinking, no thoughts of derealization or depersonalization, no obsessive thinking, no expressed phobias, Cognition--patient was alert and able to focus-sustained appropriate mental attention-memory immediate and short-term memory intact-abstract thinking present, Insight---fair Judgment or the ability to anticipate consequences of behavior intact Patient denied any suicidal ideation or impulses Patient denied any homicidal impulses or ideation At this point his mental status as stated above has normalized and he is feeling euthymic with an appropriate affect--he denies any suicidality In terms of his background 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 he currently has been looking for a job unable to find employment He denies any past psychiatric admissions and he has not been in any kind of counseling on the outside He denies any history of substance abuse At this point we will observe him over the next 24 hours and make a decision as to whether or not the hospitalization needs to be continued--at this time he does not pose any danger to himself He agreed to stay for additional treatment He stated further that he was taking the Wellbutrin at an uncertain dose but nonetheless felt that it clearly helped him with his depression and He would like to restart the Wellbutrin when he goes home Psychiatric Review of Systems Depression (2 or more weeks): feelings of excess/guilt Anxiety: situational anxiety Past Psychiatric History Previous Psychiatric Diagnosis: . Previous Psychiatric Admissions: . Suicide Attempts: . Psychiatric Follow-up: . Psychiatric medications: . Past Medical History Head Injury: No Seizures: No Hospitalizations: No Surgeries: Yes (s/p OD) Family Medical/Psychiatric HX Psychiatric Disorders: No Addiction: No Suicide Attemps/Completions: No Addiction History denies Social History Childhood: . Abuse/Trauma:. Current Living Situation: . Education: . Employment: . Social Support: . Legal: . Marital: . A-FIB/CHADSVASC A-FIB History Current/History of A-Fib/PAF?: No Current PO Anticoag Therapy: No Initial Treatment Plan 1. Patient was admitted on a [9.39] status. 2. Complete history was obtained. 3. With patients permission, family will be contacted and database will be expanded. 4. Patients medication regimen will be reviewed and changed accordingly. 5. Patient will be provided with protected environment. 6. Patient will be treated with individual, group, and milieu therapies. 7. Patient will receive supportive psych-education. 8. Discharge planning will commence immediately. 9. Outpatient follow-up treatment will be strongly recommended. 10. The initial treatment plan will focus initially on: * Depression. * Risk for suicide. ESTIMATED LENGTH OF STAY: - DAYS. TIME SPENT COUNSELING AND COORDINATING INITIAL CARE: minutes. Vital Signs Vital Signs Date Time Temp Pulse Resp B/P (MAP) Pulse Ox O2 Delivery O2 Flow Rate FiO2 11/21/19 16:56 97.7 73 16 140/79 (99) 11/21/19 06:26 Room Air 11/20/19 14:42 98 Medications Scheduled Bupropion HCl (Bupropion HCl Sr) 150 Mg Tab.sr.12h, 150 MG PO DAILY, (Reported) Cholecalciferol (Vitamin D3) (Vitamin D3) 1,000 Unit Tablet, 2,000 UNITS PO DAILY, (Reported) Desvenlafaxine Succinate (Desvenlafaxine Succinate ER) 50 Mg Tab.er.24h, 50 MG PO QHS for mood Famotidine (Famotidine) 20 Mg Tablet, 20 MG PO QHS, (Reported) Pantoprazole Sodium (Pantoprazole Sodium) 40 Mg Tablet.dr, 40 MG PO DAILY, (Reported) Topiramate (Topiramate) 100 Mg Tablet, 100 MG PO DAILY, (Reported) Scheduled PRN Sumatriptan Succinate (Sumatriptan Succinate) 100 Mg Tablet, 100 MG PO ASDIRECTED PRN for MIGRAINE, (Reported) may repeat in 2 hours; do not exceed 200 mg in 24 hours Allergies Coded Allergies: divalproex sodium (Verified Adverse Reaction, Mild, HAND SHAKING, 11/17/19) Dale Melgar MD Nov 21, 2019 19:47
[2019-11-22 06:46] VITALS: BP 139/82
--- NOTE | 2019-11-22 17:18 | MHIPNPDOC ---
[facility] Progress Note Progress Note DATE OF SERVICE: 11/22/19 Fred was seen for medical psychotherapy today 20 minutes was spent with the patient and documentation Patient was seen for a medical psychotherapy session in which the patient's treatment plan was reviewed, mental status exam performed, vital signs r eviewed, current medical conditions reviewed, and treatment goals were reviewed This visit was performed as a telehealth visit utilizing an interactive a/v telecommunications system or telephone that permitted real time communication between myself and the patient--permission/consent from patient/guardian was obtained Fred continues to be fairly stable, not complaining of any severe depression He is requesting discharge but we did explain to him the need to communicate with his prior to him returning home especially since she was very much a part of what precipitated the overdose Fred understood this and was willing to remain in treatment until it for an aftercare plan could be established and are also could be assurances that he is no longer having any suicidal impulses her thoughts--this is particularly important because of the severity of the suicide attempt At this point in time his mental status has significantly improved with also an absence of any severe depression or suicidality MENTAL STATUS EXAM Level of consciousness--patient was alert and oriented to time place person Appearance-normal posture, normal dress, no prominent physical abnormalities, alert, cooperative Behavior--like to good, no psychomotor agitation or retardation, no abnormal movements, no tremor Speech--normal rate and rhythm--normal volume Mood--euthymic Affect--normal range and consistent with mood--stable Thought processes--logical and linear , goal directed and coherent--no thought blocking or flight of ideas, no loose associations, no tangential thinking, no word salad, no thought blocking, no circumstantiality Thought content--no ideas of reference no auditory or visual hallucinations, no delusional thinking, no thoughts of derealization or depersonalization, no obsessive thinking, no expressed phobias, Cognition--patient was alert and able to focus-sustained appropriate mental attention-memory immediate and short-term memory intact-abstract thinking present, Insight---fair Judgment or the ability to anticipate consequences of behavior intact Patient denied any suicidal ideation or impulses Patient denied any homicidal impulses or ideation Hospital discharge within the next 24-72 hours contingent on continued absence of suicidal thoughts or impulse, continue improvement in his mood, and coordination with his We also talked about the fact that he was doing and buspirone were well on the bupropion before he overdosed on it--we talked about the resumption of a antidepressant which he was very much in favor of and we started pristiq 50 mg at night her Vital Signs Vital Signs Date Time Temp Pulse Resp B/P (MAP) Pulse Ox O2 Delivery O2 Flow Rate FiO2 11/22/19 06:46 99.0 78 12 139/82 (101) Room Air 11/20/19 14:42 98 Current Medications Current Medications Medications (Trade) Dose Ordered Sig/Annabella Route PRN Reason Start Time Stop Time Status Last Admin Dose Admin Acetaminophen (Tylenol Tab) 650 mg Q6HP PRN PO HEADACHE or DISCOMFORT 11/20/19 11:30 Al Hydrox/Mg Hydrox/Simethicone (Mylanta) 30 ml Q4HP PRN PO HEARTBURN/INDIGESTION 11/20/19 11:30 Desvenlafaxine Succinate (Pristiq) 50 mg QHS PO 11/22/19 21:00 Magnesium Hydroxide (Milk Of Magnesia) 30 ml DAILYPRN PRN PO CONSTIPATION 11/20/19 11:30 Olanzapine (ZyPREXA ZYDIS) 5 mg Q6HP PRN PO ANXIETY/AGITATION 11/20/19 11:30 Trazodone HCl (Desyrel) 50 mg QHSP PRN PO INSOMNIA 11/20/19 11:30 Allergies Coded Allergies: divalproex sodium (Verified Adverse Reaction, Mild, HAND SHAKING, 11/17/19) Dale Melgar MD Nov 22, 2019 17:18
[2019-11-22 18:12] VITALS: BP 138/91
[2019-11-22] MEDS: DESVENLAFAXINE ER 50 MG TABLET (PRISTIQ) PO SCH (20:45)
[2019-11-23 06:45] VITALS: BP 142/77
[2019-11-23 15:57] VITALS: BP 121/77
[2019-11-23] MEDS: DESVENLAFAXINE ER 50 MG TABLET (PRISTIQ) PO SCH (20:31)
[2019-11-24] MEDS: ACETAMINOPHEN TAB 650MG DOSE (2X325MG) PO PRN ×2 (02:29→15:32)
[2019-11-24 06:46] VITALS: BP 156/86
--- NOTE | 2019-11-24 09:28 | MHIPN ---
DATE: 11/23/2019 The patient is seen via telepsychiatry due to the current Coronavirus crisis. The patient today tells me that he continues to do better. The patient is pressing for discharge, telling me that he and his talked and that they are going to work on their relationship, and he tells me that his overdose was "accidental." I think he is minimizing the seriousness of his overdose at this point. He actually had to be intubated. The patient, I feel, has very little insight about the seriousness of his attempt. He is very guarded about the relationship problems with his , who has been unfaithful to him. MENTAL STATUS EXAMINATION: This patient is alert, oriented times three. Eye contact is fairly good. He is verbally spontaneous. There is no formal thought disorder noted. He says his mood is "better." Affect is appropriate to mood. He is not psychotic. He is denying suicidal and homicidal ideations. Concentration is fairly good. Memory intact. Insight and judgment is fair. DIAGNOSIS: Unspecified depressive disorder. TREATMENT PLAN: At this point, I am concerned that the patient really minimizes the seriousness of his overdose and refers to it as "accidental." He actually took two bottles of pills and had to be intubated. The patient, at this point, has been placed on Pristiq. We will continue to monitor him for continued resolution of depression and continued resolution of suicidal ideation. My concern is that he is really trying to minimize everything because he really wants to get home and continues to be concerned about the 's infidelity. I am concerned that he may still be a significant risk.
[2019-11-24 16:01] VITALS: BP 144/77
[2019-11-24] MEDS: DESVENLAFAXINE ER 50 MG TABLET (PRISTIQ) PO SCH (21:03)
--- NOTE | 2019-11-25 09:29 | MHIPNPDOC ---
[facility] Progress Note Progress Note DATE OF SERVICE: 11/25/19 HISTORY: . VITAL SIGNS: See below. NEW TEST RESULTS: . CURRENT MEDICATIONS: See below. MENTAL STATUS EXAMINATION: Patient is a -year old male, who is . Speech: Is . Language skills are . Thought processes including: . Thought content: . Abstract reasoning, and computation: . Description of associa tions: . Description of abnormal or psychotic thoughts: . Judgment: . Insight: [very limited, good, fair. poor]. Orientation: . Recent and remote memory: . Attention span and concentration: . Language: . Fund of knowledge: . Mood: . Affect: . DIAGNOSES: 1. . 2. . 3. . ASSESSMENT: MANAGEMENT PLAN: . TIME SPENT: minutes. Vital Signs Vital Signs Date Time Temp Pulse Resp B/P (MAP) Pulse Ox O2 Delivery O2 Flow Rate FiO2 11/24/19 16:01 101.0 85 16 144/77 (99) 11/24/19 06:46 100 Room Air Current Medications Current Medications Medications (Trade) Dose Ordered Sig/Annabella Route PRN Reason Start Time Stop Time Status Last Admin Dose Admin Acetaminophen (Tylenol Tab) 650 mg Q6HP PRN PO HEADACHE or DISCOMFORT 11/20/19 11:30 11/24/19 15:32 Al Hydrox/Mg Hydrox/Simethicone (Mylanta) 30 ml Q4HP PRN PO HEARTBURN/INDIGESTION 11/20/19 11:30 Desvenlafaxine Succinate (Pristiq) 50 mg QHS PO 11/22/19 21:00 11/24/19 21:03 Magnesium Hydroxide (Milk Of Magnesia) 30 ml DAILYPRN PRN PO CONSTIPATION 11/20/19 11:30 Olanzapine (ZyPREXA ZYDIS) 5 mg Q6HP PRN PO ANXIETY/AGITATION 11/20/19 11:30 Trazodone HCl (Desyrel) 50 mg QHSP PRN PO INSOMNIA 11/20/19 11:30 Allergies Coded Allergies: divalproex sodium (Verified Adverse Reaction, Mild, HAND SHAKING, 11/17/19) JONATHAN MICHEL DO Nov 25, 2019 09:28
--- NOTE | 2019-11-25 10:33 | MHIPN ---
DATE OF SERVICE: 11/24/2019 The patient is seen via telepsychiatry due to the current Coronavirus crisis. The patient states that he continues to do better. He tells me that he slept good. He tells me that he is not suicidal. Today, he seems to be more honest about the seriousness of his overdose. Also, he admits that if the continues to be unfaithful that he is able to accept a divorce. He seems to be interested in doing joint counseling with the after he gets discharged. MENTAL STATUS EXAMINATION: He is alert and oriented times three. He is pleasant and cooperative, verbally spontaneous. Eye contact is fairly good. He is not psychotic. Concentration is fair. Memory intact. Insight and judgment is fair. DIAGNOSIS: Unspecified depressive disorder. TREATMENT PLAN: At this point, the patient will continue to be monitored for continued resolution of suicidal ideations and stabilization in his mood. The plan should be to try setup some joint phone contact with the to discuss discharge and make sure that the is supportive of this patient.
--- NOTE | 2019-11-25 12:18 | MHDSPDOC ---
[facility] Discharge Summary Discharge Summary DATE OF ADMISSION: Nov 20, 2019 at 14:38 DATE OF DISCHARGE: 11/25/2019 DISCHARGE DIAGNOSES: Unspecified depressive disorder REASON FOR ADMISSION: 29-year-old man with a history of depression presents after overdose of Wellbutrin, it appears to been the context of an argument with about fidelity CONSULTANTS INVOLVED:[ None (basic hospitalist screening)] TREATMENT AND PROGRESS ON THE UNIT : Medication changes: patient was changed to Pristiq increase to 50 mg daily positive results, improving depression and anxiety Behavior on unit: friendly and amenable consistently denying any suicidal thoughts for close to week Treatment attendance: attended well Notable issues on presentation: insight about situation, of which patient appears to demonstrate improved insight State on discharge: [improved] DISCHARGE ASSESSMENT: The patient a 29 year old man, with likely depression after an overdose, presented to [facility], where they change soon appropriate agent and monitored for a sufficient amount of time consistently denying any suicidal thoughts and making improved strides towards recognizing the issues that brought him in. Legal status considerations: The patient at the time of discharge did not meet criteria for involuntary admission/extension due to having a [normal] mental status exam, [fair] insight into the situation, They are engaged in the discharge process, as well as being friendly and amenable in behavioral control and havent been engaging in any observed concerning behavior or ideation recently. They decline voluntary extension/admission at this time and must be discharged in good sharan, as Im unable to make a case for holding the patient against their will. They may have historical risk factors of admissions and other interactions with psychiatry however, those are not modifiable from a clinical perspective. The patient will need to be discharged in good sharan. MENTAL STATUS EXAMINATION ON DISCHARGE: [General: Well dressed with good hygiene Speech: Spontaneous and fluid Thought processes: Linear and logical Thought content: Future orientated Abstract reasoning, and computation: Intact Description of associations: Intact Description of abnormal or psychotic thoughts:Denies any suicidal or homicidal ideation. Denies any auditory or visual hallucinations. Does not appear to be responding to internal stimuli. Does not appear to be endorsing any bizarre or paranoid ideation. Judgment: fair Insight: fair Orientation: Alert and orientated 3 Recent and remote memory: Intact Attention span and concentration: Intact Fund of knowledge: Adequate Mood: "okay" Affect: Euthymic with a full range] PLAN/FOLLOWUP ARRANGEMENTS: Follow up appointments made (PCP and MH in 5 days of D/C date) and safety plan completed. Safety Planning aspects completed prior to discharge [Medication supplies limited to 7 days with 4 refills to prevent accumulation to OD] [Family contact completed, educated on safe practices, instructed on removal and mitigation of dangerous means] [RN reviewed crisis hotline information and other aspects to empower patient to access care in interim before next appointment.] The amount of time spent in the coordination of care for this patient was approximately 30 minutes. Vital Signs/I&Os Vital Signs Date Time Temp Pulse Resp B/P (MAP) Pulse Ox O2 Delivery O2 Flow Rate FiO2 11/24/19 16:01 101.0 85 16 144/77 (99) 11/24/19 06:46 100 Room Air Medications Scheduled Bupropion HCl (Bupropion HCl Sr) 150 Mg Tab.sr.12h, 150 MG PO DAILY, (Reported) Cholecalciferol (Vitamin D3) (Vitamin D3) 1,000 Unit Tablet, 2,000 UNITS PO DAILY, (Reported) Desvenlafaxine Succinate (Desvenlafaxine Succinate ER) 50 Mg Tab.er.24h, 50 MG PO QHS for mood for 7 Days, #7 Famotidine (Famotidine) 20 Mg Tablet, 20 MG PO QHS, (Reported) Pantoprazole Sodium (Pantoprazole Sodium) 40 Mg Tablet.dr, 40 MG PO DAILY, (Reported) Topiramate (Topiramate) 100 Mg Tablet, 100 MG PO DAILY, (Reported) Scheduled PRN Sumatriptan Succinate (Sumatriptan Succinate) 100 Mg Tablet, 100 MG PO ASDIRECTED PRN for MIGRAINE, (Reported) may repeat in 2 hours; do not exceed 200 mg in 24 hours Allergies Coded Allergies: divalproex sodium (Verified Adverse Reaction, Mild, HAND SHAKING, 11/17/19) JONATHAN MICHEL DO Nov 25, 2019 12:18
[2019-11-25] MEDS ORDERED: DESV50TA3 PO (12:46)
== END 2019-11-25 17:35 | disposition home or self-care (01) | DRG 754 ==
LOC: M PSY 14:38
PROVIDERS: ADMIT Psychiatry & Neurology Psychiatry; ATTEND Psychiatry & Neurology Psychiatry
DX: F32.9 Major depressive disorder, single episode, unspecified (principal); F17.210 Nicotine dependence, cigarettes, uncomplicated; Z79.899 Other long term (current) drug therapy; Z88.8 Allergy status to other drugs, medicaments and biological substances